=== PATIENT | female | born 1990 | race African-American/Black ===

== ENCOUNTER 2023-04-17 12:50 | Emergency (ER) | payer SELFPAY ==
[2023-04-17] MEDS ORDERED: Ketorolac Tromethamine 30 MG (1 mL) VIAL ONE (13:46)
== END 2023-04-17 14:06 | disposition home or self-care (01) ==
LOC: ERS 12:50
DX: G56.02 Carpal tunnel syndrome, left upper limb (principal); F17.290 Nicotine dependence, other tobacco product, uncomplicated
CPT/HCPCS: 96372; 99283; J1885

== ENCOUNTER 2023-05-09 13:37 | Emergency (ER) | payer OTHER ==
[2023-05-09 15:41] LABS: SARS-CoV-2 NAA Rapid Test Not Detected (NotDetected)
== END 2023-05-09 15:48 | disposition home or self-care (01) ==
LOC: ERS 13:37
DX: B34.9 Viral infection, unspecified (principal); F17.290 Nicotine dependence, other tobacco product, uncomplicated
CPT/HCPCS: 99283

== ENCOUNTER 2023-09-01 10:27 | Emergency (ER) | payer OTHER ==
[2023-09-01] MEDS ORDERED: Ondansetron ODT 8 MG TAB ONE (10:45)
== END 2023-09-01 11:20 | disposition home or self-care (01) ==
LOC: ERS 10:27
DX: R11.2 Nausea with vomiting, unspecified (principal); K04.7 Periapical abscess without sinus; F17.290 Nicotine dependence, other tobacco product, uncomplicated
CPT/HCPCS: 99284; Q0162

== ENCOUNTER 2024-12-20 11:18 | Emergency (ER) | payer OTHER | END 2024-12-20 13:53 | disposition left against medical advice (07) | LOC: ERS 11:18 | DX: Z53.21 Procedure and treatment not carried out due to patient leaving prior to being seen by health care provider (principal) ==

== ENCOUNTER 2025-03-28 09:32 | Emergency (ER) | payer OTHER ==
[2025-03-28 11:38] LABS: Hematocrit 38.3 % (36.0-47.0); Hemoglobin 13.9 g/dL (12.0-16.0); Mean Corpuscular Hemoglobin 34.5 pg (27.0-31.0); Mean Corpuscular Volume 95.0 fL (78.0-98.0); Platelet Count 254 10x3/uL (130-400); Red Blood Cell (RBC) Count 4.03 mill/uL (4.20-5.40); White Blood Cell (WBC) Count 7.33 10x3/uL (4.8-10.8)
[2025-03-28 11:41] LABS: Glucose, Urine (Dipstick) Negative (Negative); Leukocyte Negative (Negative); Protein, Urine (Dipstick) 30 mg/dL (Neg-Trace); Specific Gravity, Urine 1.015 (1.005-1.030)
[2025-03-28 11:43] LABS: Pregnancy Test - Urine (BHCG) Negative (Negative); Pregu Control Background? CLEAR/WHITE (CLR/WHITE); Pregu Control Bar Appear? YES (CONTROL BAR)
[2025-03-28 11:44] LABS: Bacteria/HPF None Seen HPF (None Seen); CAUTI Indications for Culture Pelvic or flank pain; RBC/HPF 0-3 HPF (0-3); WBC/HPF 0-3 HPF (0-3)
[2025-03-28 11:45] LABS: Urine Culture Reflex No No
[2025-03-28 11:47] LABS: ALT (SGPT) 17 U/L (Less than 34); AST (SGOT) 23 U/L (11-34); Albumin 4.1 g/dL (3.1-4.5); Alkaline Phosphatase 67 U/L (40-110); Anion Gap 9 mmol/L (10-20); BUN (Urea Nitrogen) 6 mg/dL (7.0-18.7); Bilirubin, Total 0.8 mg/dL (0.3-1.2); Calc. Creatinine Clearance 0 mL/min (70-130); Calcium 9.6 mg/dL (7.8-10.44); Carbon Dioxide 26 mmol/L (22-29); Chloride 102 mmol/L (98-107); Globulin 2.9 g/dL (2.4-3.5); Glucose 109 mg/dL (70-105); Lipase 15 U/L (8-78); Potassium 3.4 mmol/L (3.5-5.1); Sodium 134 mmol/L (136-145)
[2025-03-28] MEDS ORDERED: Iopamidol-370 76% 500 ML MDV (1 ML CHARGE) ONE (11:53)
[2025-03-28] MEDS ORDERED: Ondansetron PF 4 MG/2 ML Vial ONE (11:53)
[2025-03-28 12:12] LABS: Platelet Adequacy Comment Platelets Normal; Smudge Cells 1.0 %; Target Cells SLIGHT = 2-5 cells HPF (0-1)
[2025-03-28] MEDS ORDERED: Lidocaine Viscous Sol 2% 15 ml UD Cup ONE (12:30)
[2025-03-28] MEDS ORDERED: Mag-Al 1200 mg/1200 mg/30 ML UDCUP ONE (12:30)
== END 2025-03-28 14:23 | disposition home or self-care (01) ==
LOC: ERS 09:32
DX: K29.00 Acute gastritis without bleeding (principal); I10 Essential (primary) hypertension; N83.202 Unspecified ovarian cyst, left side; F17.210 Nicotine dependence, cigarettes, uncomplicated
CPT/HCPCS: 74177; 80053; 81001; 81025; 83690; 84484; 85025; 87428; 93005; 96361; 96374; 96375; J2405; J3010; Q0162